=== PATIENT | female | born 1995 | race Hispanic/Latino ===

== ENCOUNTER 2018-05-27 11:58 | Emergency (ER) | payer BC ==
[~2018-05-27] VITALS: Ht 165.1 cm; Wt 90.7 kg
--- OUTSIDE RECORDS SUMMARY | 2018-05-27 12:01 | XMS REPORT | Clinical Summary ---
Author Author [facility] Organization [facility] Address Unknown Phone Unavailable Care Team Providers Care Planner Intern Name Role Phone Asked, No Pcp PCP Unavailable Allergies No Known Allergies Current Medications Prescription Sig. Disp. Refills Start End Date Status Date FEXOFENADINE HCL (BUD Take 1 tablet by mouth as Active ORAL) needed (allergies). rizatriptan (MAXALT) 5 MG Take 1 tablet (5 mg 12 tablet 0 02/29/20 Active tablet total) by mouth once as 18 needed for migraine for up to 12 doses. Active Problems Problem Noted Date Intractable migraine without aura 02/28/2017 Family History Medical History Relation Name Comments No Known Problems Father Migraines Mother Relation Name Status Comments Father Alive Mother Alive Social History Tobacco Use Types Packs/Day Years Used Date Never Smoker Smokeless Tobacco: Never Used Alcohol Use Drinks/Week oz/Week Comments No Sex Assigned at Date Recorded Not on file Last Filed Vital Signs Not on file Plan of Treatment Health Maintenance Due Date Last Done Comments CHLAMYDIA SCREENING 2012 CERVICAL CANCER SCREENING 2017 INFLUENZA VACCINE 02/28/2018 Results Not on fileafter 05/26/2017 Insurance Payer Benefit Subscriber ID Type Phone Address Plan / Group BCBS BCBS xxxxxxxxxxxx PPO CHOICE PPO/NAHED [id number] PPO
--- NOTE | 2018-05-27 13:31 | Diagnostic Imaging Report ---
Wrist Complete right CPT Code: 01350 Indication: Pain, no trauma Technique: Three views right wrist obtained. Comparison: None Findings: The osseous structures are well developed and mineralized. Mild negative ulnar variance. No fractures or dislocations. No degenerative changes. Sclerotic, nondestructive focus in the distal radius abutting the articular surface measures 7 mm. This may represent a bone island or fibrous osseous defect. No radio-opaque foreign bodies in the soft tissues. IMPRESSION: No evidence of displaced fracture or dislocation involving the wrist. Other findings as described above. Signed by: Dr. Esther Ratliff MD on 05/27/2018 1:28 PM
== END 2018-05-27 15:40 | disposition home or self-care (01) ==
LOC: FSED 11:58
DX: M25.531 Pain in right wrist (principal)
CPT/HCPCS: 81025; 99284

== ENCOUNTER 2021-07-24 11:34 | Emergency (ER) | payer BC, OTHER ==
[~2021-07-24] VITALS: Ht 165.1 cm; Wt 111.3 kg
[2021-07-24] MEDS ORDERED: VALACYCLOVIR1000 MG PO (13:58)
[2021-07-24] MEDS ORDERED: DIFLUCAN150 MG PO (14:00)
== END 2021-07-24 14:09 | disposition home or self-care (01) ==
LOC: FSED 12:48
DX: A60.09 Herpesviral infection of other urogenital tract (principal); R10.2 Pelvic and perineal pain
CPT/HCPCS: 81003; 81025; 99283